=== PATIENT | male | born 1995 | race Caucasian/White ===

== ENCOUNTER 2021-05-27 10:56 | Emergency (ER) | payer OTHER ==
[~2021-05-27] VITALS: Ht 180.3 cm; Wt 158.8 kg
--- NOTE | 2021-05-27 10:56 | NUR ---
PT BIB SELF C/O SWELLING TO L LOWER BACK/FLANK AREA DRAINING PUS NOTED TODAY. NALTREXONE INPLANT 3 WEEKS AGO. PT IS AAOX4, NOT IN RESPIRATORY DISTRESS, HOOKED TO [employer], KEPT RESTED AND COMFORTABLE. WILL CONTINUE TO MONITOR.
--- NOTE | 2021-05-27 11:10 | NUR ---
AT BEDSIDE FOR EVAL.
--- NOTE | 2021-05-27 11:22 | NUR ---
IV LINE ESTABLISHED BLOOD DRAWN AND SENT TO LAB.
[2021-05-27] MEDS: IV NS 0.9% 1,000 ML BAG IV ONE (11:27)
[2021-05-27 11:29] LABS: BASOPHILS # (AUTO) 0.1 K/uL (0.0-0.2); BASOPHILS % (AUTO) 0.6 % (0.0-2.0); EOSINOPHILS % (AUTO) 4.1 % (0.0-6.0); HEMATOCRIT 47 % (39-51); LYMPHOCYTES # (AUTO) 1.8 K/uL (0.8-4.8); LYMPHOCYTES % (AUTO) 15.7 % (20.0-44.0); MEAN CORPUSCULAR HGB CONC 34 g/dl (31.0-36.0); MEAN CORPUSCULAR VOLUME 88 fL (80-96); MONOCYTES # (AUTO) 1.2 K/uL (0.1-1.30); NEUTROPHILS # (AUTO) 8.2 K/uL (1.8-8.9); NEUTROPHILS % (AUTO) 69.6 % (43.0-81.0); PLATELET COUNT (AUTO) 296 K/uL (150-450); RED BLOOD CELL COUNT(AUTO) 5.31 MIL/uL (4.5-6.0); WHITE BLOOD COUNT (AUTO) 11.8 K/uL (4.3-11.0)
[2021-05-27 11:40] LABS: CALCIUM, SERUM 8.7 mg/dL (8.5-10.1); CREATININE 0.9 mg/dL (0.6-1.3); POTASSIUM 3.6 mmol/L (3.5-5.1)
[2021-05-27] MEDS ORDERED: IOHEXOL-300 100 ML VIAL IV ONE (11:45)
[2021-05-27] MEDS ORDERED: IV NS 0.9% 250 ML IV ONE (11:45)
[2021-05-27] MEDS ORDERED: CT SWABBABLE VALVE TRANS SET 1 EA INFUS.SET MC ONE (11:45)
--- NOTE | 2021-05-27 11:45 | NUR ---
PT IS WHEELED TO CT SCAN VIA [facility].
[2021-05-27 11:46] LABS: ALBUMIN 3.6 g/dL (3.4-5.0); BILIRUBIN,DIRECT 0.2 mg/dL (0.0-0.2); BILIRUBIN,TOTAL 0.4 mg/dL (0.2-1.0); TOTAL PROTEIN, SERUM 7.2 g/dL (6.4-8.2)
[2021-05-27] MEDS: VANCOMYCIN 1 GM in IV D5W 250 ML IV ONE (12:00)
--- NOTE | 2021-05-27 12:30 | NUR ---
COVID SPECIMEN OBTAINED AND SENT TO LAB.
[2021-05-27] MEDS ORDERED: SULF1TAB48 PO (13:28)
[2021-05-27] MEDS ORDERED: CEPH500C2 PO (13:28)
--- NOTE | 2021-05-27 14:02 | NUR ---
IV removed. Catheter intact and site benign. Pressure and 4x4 applied to site. No bleeding noted. Patient discharged to home in stable condition. Written and verbal after care instructions given. Patient verbalizes understanding of instruction.
[2021-05-27 14:03] VITALS: BP 137/73
== END 2021-05-27 14:08 | disposition home or self-care (01) ==
LOC: ER 11:06
DX: T85.79XA Infection and inflammatory reaction due to other internal prosthetic devices, implants and grafts, initial encounter (principal); L03.312 Cellulitis of back [any part except buttock and flank]; Y82.8 Other medical devices associated with adverse incidents; Y92.89 Other specified places as the place of occurrence of the external cause; E66.9 Obesity, unspecified; Z68.42 Body mass index [BMI] 45.0-49.9, adult; R94.31 Abnormal electrocardiogram [ECG] [EKG]; Z20.822 Contact with and (suspected) exposure to COVID-19; R16.0 Hepatomegaly, not elsewhere classified; R03.0 Elevated blood-pressure reading, without diagnosis of hypertension
CPT/HCPCS: 36415; 74177; 80048; 80076; 83605; 85025; 87040 ×2; 87426; 93005; 96361; 96365; 99285; C9803; J3370; J7030; J7050; Q9967; J7060

== ENCOUNTER 2021-06-23 09:48 | Outpatient (CLI) | payer OTHER ==
[~2021-06-23 09:48] MED LIST: CEPH500C2 PO; SULF1TAB48 PO
[2021-06-23] MEDS ORDERED: ACETAMINOPHEN ES 500 MG TABLET PO ONE (10:30)
[2021-06-23] MEDS ORDERED: COLLAGENASE 5 GM TUBE UD TP ONE ×2 (11:38)
== END 2021-06-23 23:59 | disposition home health service (06) ==
LOC: WOU 09:48
PROVIDERS: ATTEND Specialist
DX: L03.319 Cellulitis of trunk, unspecified (principal); M79.89 Other specified soft tissue disorders; F11.29 Opioid dependence with unspecified opioid-induced disorder; I10 Essential (primary) hypertension
CPT/HCPCS: 87070-TC; 87075-TC; G0463

== ENCOUNTER 2021-06-30 09:40 | Outpatient (CLI) | payer OTHER ==
[2021-06-30] MEDS ORDERED: COLLAGENASE 5 GM TUBE UD TP ONE (10:24)
== END 2021-06-30 23:59 | disposition home health service (06) ==
LOC: WOU 09:40
PROVIDERS: ATTEND Specialist
DX: T81.49XA Infection following a procedure, other surgical site, initial encounter (principal); L03.312 Cellulitis of back [any part except buttock and flank]; L02.212 Cutaneous abscess of back [any part, except buttock and flank]; F11.29 Opioid dependence with unspecified opioid-induced disorder; M79.89 Other specified soft tissue disorders; I10 Essential (primary) hypertension; F17.210 Nicotine dependence, cigarettes, uncomplicated
CPT/HCPCS: 11042

== ENCOUNTER 2021-07-07 09:41 | Outpatient (CLI) | payer OTHER | END 2021-07-07 23:59 | disposition home health service (06) | LOC: WOU 09:41 | PROVIDERS: ATTEND Specialist | DX: T81.49XA Infection following a procedure, other surgical site, initial encounter (principal); L02.211 Cutaneous abscess of abdominal wall; L03.319 Cellulitis of trunk, unspecified; M79.89 Other specified soft tissue disorders; F11.29 Opioid dependence with unspecified opioid-induced disorder; F17.200 Nicotine dependence, unspecified, uncomplicated; I10 Essential (primary) hypertension; I96 Gangrene, not elsewhere classified | CPT/HCPCS: 11043; A6210 ==

== ENCOUNTER 2021-07-14 10:15 | Outpatient (CLI) | payer OTHER ==
[2021-07-14] MEDS ORDERED: LIDOCAINE 2%-EPI 1:100,000 30 ML VIAL ONE (10:34)
== END 2021-07-14 23:59 | disposition home health service (06) ==
LOC: WOU 10:15
PROVIDERS: ATTEND Specialist
DX: T81.89XA Other complications of procedures, not elsewhere classified, initial encounter (principal); M79.89 Other specified soft tissue disorders; F11.29 Opioid dependence with unspecified opioid-induced disorder; I10 Essential (primary) hypertension; F17.200 Nicotine dependence, unspecified, uncomplicated; Z88.1 Allergy status to other antibiotic agents
CPT/HCPCS: 11043; A6210; J3490

== ENCOUNTER 2021-07-21 10:00 | Outpatient (CLI) | payer OTHER ==
[2021-07-21] MEDS ORDERED: LIDOCAINE SOLN 4% 50 ML BOTTLE ONE (10:08)
== END 2021-07-21 23:59 | disposition home health service (06) ==
LOC: WOU 10:00
PROVIDERS: ATTEND Specialist
DX: T81.89XD Other complications of procedures, not elsewhere classified, subsequent encounter (principal); M79.89 Other specified soft tissue disorders; F11.29 Opioid dependence with unspecified opioid-induced disorder; F17.200 Nicotine dependence, unspecified, uncomplicated; I10 Essential (primary) hypertension; L02.211 Cutaneous abscess of abdominal wall
CPT/HCPCS: 99214; A6210; G0463

== ENCOUNTER 2021-07-28 10:00 | Outpatient (CLI) | payer OTHER ==
[2021-07-28] MEDS ORDERED: HYDROCORTISONE 1% CREAM 28.35 GM TUBE TP ONE (10:34)
[2021-07-28] MEDS ORDERED: CLOTRIMAZOLE 1% 15 GM TUBE TP ONE (10:34)
== END 2021-07-28 23:59 | disposition home or self-care (01) ==
LOC: WOU 10:00
PROVIDERS: ATTEND Specialist
DX: T81.89XD Other complications of procedures, not elsewhere classified, subsequent encounter (principal); M79.89 Other specified soft tissue disorders; F11.29 Opioid dependence with unspecified opioid-induced disorder
CPT/HCPCS: 99214; A6210; G0463

== ENCOUNTER 2021-08-04 10:30 | Outpatient (CLI) | payer OTHER | END 2021-08-04 23:59 | disposition home or self-care (01) | LOC: WOU 10:30 | PROVIDERS: ATTEND Specialist | DX: T81.89XA Other complications of procedures, not elsewhere classified, initial encounter (principal); M79.89 Other specified soft tissue disorders; F11.29 Opioid dependence with unspecified opioid-induced disorder | CPT/HCPCS: 11042 ==

== ENCOUNTER 2021-08-11 10:20 | Outpatient (CLI) | payer OTHER | END 2021-08-11 23:59 | disposition home or self-care (01) | LOC: WOU 10:20 | PROVIDERS: ATTEND Specialist | DX: T81.89XD Other complications of procedures, not elsewhere classified, subsequent encounter (principal); M79.89 Other specified soft tissue disorders; F11.29 Opioid dependence with unspecified opioid-induced disorder | CPT/HCPCS: G0463 ==

== ENCOUNTER → 2021-08-25 | Outpatient (CLI) | payer OTHER | END | disposition home or self-care (01) | LOC: WOU 10:10 | PROVIDERS: ATTEND Specialist | DX: T81.89XD Other complications of procedures, not elsewhere classified, subsequent encounter (principal); M79.89 Other specified soft tissue disorders; F11.29 Opioid dependence with unspecified opioid-induced disorder | CPT/HCPCS: G0463 ==